=== PATIENT | male | born 1985 | race Two or more races ===

== ENCOUNTER 2019-08-24 13:16 | Emergency (ER) | payer OTHER ==
[~2019-08-24] VITALS: Ht 167.6 cm; Wt 77.1 kg
[2019-08-24] MEDS ORDERED: LIDOCAINE 5% TOPICAL OINTMENT 35GM TUBE. TP ONE (13:30)
[2019-08-24] MEDS ORDERED: LIDOCAINE/EPI/TETRACAINE TOPICAL GEL 3 ML. TP ONE (13:33)
[2019-08-24 13:37] VITALS: BP 156/74
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
[2019-08-24] MEDS ORDERED: DIPHTH,PERTUSS(ACELL),TET TOX 0.5 ML DISP.SYRIN. VAX IM ONE (13:45)
[2019-08-24] MEDS ORDERED: NAPROXEN 500 MG TABLET PO ONE (14:00)
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
[2019-08-24] MEDS ORDERED: NAPR500T8 PO (15:23)
[2019-08-24] MEDS ORDERED: LIDOCAINE 1%/EPI 1:100,000 20 ML VIAL. IJ ONE (15:30)
== END 2019-08-24 15:32 | disposition home or self-care (01) ==
LOC: ER 13:16
DX: S01.01XA Laceration without foreign body of scalp, initial encounter (principal); S01.512A Laceration without foreign body of oral cavity, initial encounter; S40.012A Contusion of left shoulder, initial encounter; E78.00 Pure hypercholesterolemia, unspecified; W22.8XXA Striking against or struck by other objects, initial encounter; Y93.89 Activity, other specified; Y92.89 Other specified places as the place of occurrence of the external cause; Y99.8 Other external cause status
CPT/HCPCS: 12004; 12011; 70450; 70486; 73030; 90471; 90715; 99284-25